=== PATIENT | female | born 1965 | race Caucasian/White ===

== ENCOUNTER → 2021-12-13 15:23 | Outpatient (CLI) | payer OTHER, SELFPAY ==
--- NOTE | ~2021-12-13 | US_ITS ---
EXAMINATION: US transvaginal DATE: 12/13/2021 15:41 INDICATION: Cervical firmness TECHNIQUE: Multiple endovaginal sonographic images of the pelvis were obtained. COMPARISON: None. FINDINGS: Uterus: 9.8 x 0.7 x 9.7 cm. Endometrial complex is poorly visualized. The external contours of the ut erus are poorly visualized. 7.9 cm x 6.7 x 7 cm spherical mass present, likely within the uterine emmy metrium, with heterogeneous echogenicity. Right Ovary: Not visualized. Left Ovary: Not visualized. There is no free fluid in the pelvis. IMPRESSION: 1. Possible 7.9 cm uterine fibroid. 2. Given limited sonographic visualization of the uterus and adnexa, consider pelvic MRI for more com plete evaluation and to confirm the location and character of the suspected fibroid. Reviewed, dictated and finalized at [facility]. IMPRESSION: 1. Possible 7.9 cm uterine fibroid. 2. Given limited sonographic visualization of the uterus and adnexa, consider p elvic MRI for more complete evaluation and to confirm the location and characte r of the suspected fibroid.
== END ==
PROVIDERS: PCP Internal Medicine; Visit Provider Nurse Practitioner
DX: D26.0 Other benign neoplasm of cervix uteri (principal)
CPT/HCPCS: 76830

== ENCOUNTER → 2022-02-15 12:43 | Outpatient (CLI) | payer OTHER, SELFPAY ==
--- NOTE | ~2022-02-15 | MR_ITS ---
EXAMINATION: MR pelvis wo/w con DATE: 02/15/2022 14:26 INDICATION: Uterine mass. TECHNIQUE: Magnetic resonance imaging (MRI) of the pelvis was performed without and with 18 mL MultiH ance intravenous contrast. COMPARISON: Ultrasound 12/13/2021 FINDINGS: There are no dilated loops of bowel. There is a 9.6 cm intramural fibroid in the uterus posteriorly. The endometrial complex is normal in thickness. There is physiologic fluid in the pelvis. There is a 1.6 cm dominant follicle in left ovary. Right ovary is normal. IMPRESSION: 1. 9.6 cm intramural uterine fibroid. Reviewed, dictated and finalized at location [facility].
[2022-02-15 13:40] LABS: Estimated Glomerular Filt Rate > 60
== END ==
PROVIDERS: PCP Internal Medicine; Visit Provider Obstetrics & Gynecology Gynecology
DX: N85.8 Other specified noninflammatory disorders of uterus (principal); D25.9 Leiomyoma of uterus, unspecified
CPT/HCPCS: 72197; A9577

== ENCOUNTER 2024-02-14 13:10 | Outpatient (CLI) | payer OTHER, SELFPAY ==
--- NOTE | ~2024-02-14 | US_ITS ---
EXAMINATION: US pelvic complete DATE: 02/14/2024 13:27 INDICATION: Pelvic pain Comparison:12/13/2021 TECHNIQUE: Multiple transabdominal and endovaginal sonographic images of the pelvis performed. FINDINGS: The uterus measures 13.9 x 11.5 x 2.9 cm. There are uterine fibroids, largest measuring 8.5 cm. The endometrial complex measures 1.3 cm. The right ovary measures 2.3 x 1.3 x 2.2 cm and the left ovary measures 2 x 1.2 x 1.8 cm. There are small follicles in each ovary. Normal doppler signal in both ovaries. There is no free fluid in the pelvis. There are no abnormal masses seen on either side. IMPRESSION: 1. Enlarged fibroid uterus. 2: Thickened endomtrial complex. The differential diagnosis includes endometrial hyperplasia, polyp a nd carcinoma. Biopsy is recommended. Reviewed, dictated and finalized at location [facility]. IMPRESSION: 1. Enlarged fibroid uterus. 2: Thickened endomtrial complex. The differential diagnosis includes endometria l hyperplasia, polyp and carcinoma. Biopsy is recommended.
== END 2024-02-14 13:11 ==
PROVIDERS: PCP Internal Medicine; Visit Provider Nurse Practitioner
DX: R10.2 Pelvic and perineal pain (principal); D25.9 Leiomyoma of uterus, unspecified; R93.89 Abnormal findings on diagnostic imaging of other specified body structures
CPT/HCPCS: 76856

== ENCOUNTER 2024-03-24 01:45 | Day surgery (SDC) | payer OTHER, SELFPAY ==
[2024-03-14 10:13] VITALS: BMI 32.3
--- NOTE | 2024-03-14 10:23 | PC.NURSE ---
Report to the Outpatient Waiting Room, entrance under the green pavilion located off [facility], at time 09:30am on date 03-24-24. Planned Procedure Time: 11:30am. Time changes happen often and if your time is changed the preop area will call you the afternoon before. - You and your visitor will be asked to self-screen and do not enter if you have any COVID symptoms. - A mask is optional within the hospital at this time. Patients may have clear liquids (water, carbonated beverages, clear teas, apple juice) until 3 hours prior to surgery (08:30am) with a maximum of 20 ounces. - No food from midnight until time of surgery Take the following medications with a SIP of water the morning of surgery: wellbutrin, lexapro DO NOT STOP ANY OF YOUR OTHER PRESCRIPTION MEDICATIONS PRIOR TO SURGERY ?EXCEPT THE FOLLOWING Medications to discontinue per physician n/a Please no make-up, nail irish, hairspray, perfume, deodorant, or body powder the day of surgery. No jewelry (including any body piercings) or valuables the day of surgery, leave them at home. Please take a shower or bath the night before, or the morning of, surgery with an antibacterial soap. Wear comfortable, loose fitting clothing. - Jewelry must be removed prior to entering the operating room. Rings and piercings that are not removed may be cut off. - The hospital will not accept responsibility for valuables. - Please leave all valuables, including medications, at home the day of surgery. If you are going home after surgery, a licensed motorcycle delivery driver must drive you home. - NO public transportation without another adult if you receive anesthesia. - We recommend that an adult stay with you for 24 hours following discharge. - We also recommend that you do not drive, make important decision, drink alcoholic beverages, or take any drugs that were not prescribed by your health care provider for at least 24 hours after your discharge time. Follow any additional instructions given to you from your surgeon. If you or anyone in your household have experienced Covid symptoms in the past week, please notify your surgeon or the nurse liaison at the phone number below for possible testing. Telephone instructions given to PATIENT and asked if any additional questions and then verbalized understanding. Patient advised to call surgeon office or pre surgery nurse liaison [phone] if any additional questions.
--- NOTE | 2024-03-24 07:55 | P.HP_ITS ---
History of Present Illness History of Present Illness Consent: Risks, benefits, and alternatives have been discussed and questions answered. Patient agrees to proceed with procedure. Chief complaint: Thickened Endometrial Lining Narrative: Tania Cordova is a 59 year old female with known fibroids. Patient had complaints of pain and a pelvic ultrasound was performed which redemonstrated fibroids. However, the endometrium measured 1.3cm. The patient denied vaginal bleeding. Due to the thickened endometrium was recommended to undergo hysteroscopy D&C for further evaluation. Risks of infection, bleeding, perforation, and possible pathology are reviewed. Patient voices understanding and agrees to proceed. Review of Systems Review of Systems: not repeated day of surgery; patient states no changes in status [facility] Past Medical History Medical History (Updated 03/24/24 @ 08:00 by Ada Narvaez MD) Depression Hymenal remnant history of surgical removal age 16 Surgical History Surgical History (Updated 03/24/24 @ 07:59 by Ada Narvaez MD) Status post gastric bypass for obesity lap band placed 2009 Status post laparoscopic cholecystectomy Status post left knee replacement Social History Social History Smoking status: Never smoker Alcohol intake: never Substance use: never Substance use type: does not use Living arrangements: with family Meds Home Medications and Allergies Home Medications Medication Instructions Recorded Confirmed Type bupropion HCl 150 mg 24 hr tablet, 150 mg PO DAILY 03/14/24 03/14/24 History extended release escitalopram oxalate 20 mg tablet 20 mg PO DAILY 03/14/24 03/14/24 History estradiol-norethindrone acet 0.5 1 tablet PO DAILY 03/14/24 03/14/24 History mg-0.1 mg tablet Allergies Allergy/AdvReac Type Severity Reaction Status Date / Time No Known Allergies Allergy Verified 03/14/24 10:16 Exam Const: General: healthy appearing and alert Orientation/consciousness: patient oriented x3 Resp: Effort & Inspection: normal respiratory effort : External Female Exam: normal external appearance Speculum Exam - Vagina: normal appearance of the vagina and normal vaginal discharge Speculum Exam - Cervix: normal appearance of the cervix Bimanual exam- vagina & uterus: consistency normal and enlarged ( approximately 16 week size) Bimanual Exam- Adnexa, other: normal adnexae and No adnexal tenderness Neuro: General: patient oriented x3 Assessment and Plan Assessment and plan (1) Thickened endometrium: Code(s): R93.89 - Abnormal findings on diagnostic imaging of other specified body structures Status: Acute Assessment and Plan: plan to proceed with hysteroscopy D&C
--- NOTE | 2024-03-24 07:55 | WPDHPUPDATE1 ---
History and Physical Update Update Date/Time: 03/24/24 07:55 History and Physical has been reviewed, including an updated exam of the patient. There are NO changes in the patient's condition. Risks, benefits, and alternatives have been discussed and questions answered. Patient agrees to proceed with procedure.
[2024-03-24 09:37] VITALS: BP 138/68; PULSE 62; RESP 16; TEMP 36.3; O2SAT 97
[2024-03-24] MEDS: ACETAMINOPHEN 500 MG TABLET 1000 MG PO (09:45)
[2024-03-24] MEDS: LACTATED RINGERS 1,000 ML 30 ML IV CONT (09:50)
--- NOTE | 2024-03-24 10:08 | P.PNAN_ITS ---
Anes - Initial Pre Proc Eval Procedure: Operation Date: 03/24/24 11:30 Proposed Procedures p Hysteroscopy Dilation and Curettage - Ada Narvaez MD Date/Time: 03/24/24 10:08 Surgeon: Ada Narvaez MD Pre Op Diagnosis: Thickened Endometrial Lining Patient Data Age: 59 Gender: F Height: 1.68 m Weight: 97.5 kg Last Vital Signs Temp 97.3 F L 03/24/24 09:37 Pulse 62 03/24/24 09:37 Resp 16 03/24/24 09:37 BP 138/68 03/24/24 09:37 Pulse Ox 97 03/24/24 09:37 O2 Del Method Room Air 03/24/24 09:37 Allergies Allergy/AdvReac Type Severity Reaction Status Date / Time No Known Allergies Allergy Verified 03/24/24 09:41 Home Medications Medication Instructions Recorded Confirmed Type bupropion HCl 150 mg 24 hr tablet, 150 mg PO DAILY 03/14/24 03/24/24 History extended release escitalopram oxalate 20 mg tablet 20 mg PO DAILY 03/14/24 03/24/24 History estradiol-norethindrone acet 0.5 1 tablet PO DAILY 03/14/24 03/24/24 History mg-0.1 mg tablet Patient hx anesthesia problems: none Family hx anesthesia problems: none Results Review: All pre-operative results and documents have been reviewed as part of the pre- operative evaluation. [facility] Past Medical History Medical History Depression Hymenal remnant history of surgical removal age 16 Surgical History Surgical History Status post gastric bypass for obesity lap band placed 2009 bypass 2014 Status post laparoscopic cholecystectomy Status post left knee replacement Social History Social History Smoking status: Never smoker Alcohol intake: never Substance use: never Substance use type: does not use Living arrangements: with family Anes - Eval Final PreProcedure Day of Procedure 03/24/24 10:08 Patient weight: obese Heart: regular rate and rhythm Lungs: clear to auscultation Airway: Mallampati scale Neurological: alert and oriented Last oral intake: >/= 8 hours ASA classification: II Emergent: no Anesthetic plan: proceed Anesthesia type and monitoring: general GIVS and standard monitoring Results Review: All pre-operative results and documents have been reviewed as part of the pre- operative evaluation. Hx of anxiety/depression, pt w BMI 34. Informed Consent: The patient's anesthetic plan and its attendant risks and benefits were discussed with the patient/family/POA. Questions were solicited and answers provided to the satisfaction of the patient/family/POA.
[2024-03-24] MEDS: KETOROLAC 15 MG/ML VIAL (*BKC) IV PUSH (10:50)
--- NOTE | 2024-03-24 11:15 | W.PM.PROC2 ---
Procedure Note - Detailed Date of Procedure 03/24/24 Pre-op Diagnosis Thickened Endometrial Lining Post-op Diagnosis Same Procedure Performed diagnostic hysteroscopy; excision endocervical polyp Surgeon Ada Narvaez MD Anesthesia MAC Findings 1cm endocervical polyp at the cervical os; uterus sounded to 15cm Description of Procedure The patient is taken to the operating room and placed under anesthesia in the dorsal lithotomy position. She was prepped and draped in usual sterile fashion. [place] speculum was placed in the vagina and the cervix is noted to have a 1cm polyp. The polyp was grasped with a ring forcep and excised. The uterus is then sounded without difficulty to 15cm. The hysteroscope was placed and there was a small perforation noted at the fundus. No obvious abnormalities are noted however there is not full expansion of the cavity. Due to the perforation no biopsies taken. The instruments are removed and the patient awakened from anesthesia and taken to recovery in stable condition. Sponge, needle, and instrument counts are correct per the OR staff. Estimated Blood Loss 5 Drains No Packing No Pathology Yes ( Endocervical polyp) Complications Other complications ( uterine perforation) Condition Stable Disposition PACU
[2024-03-24 11:19] VITALS: BP 133/66; PULSE 66; RESP 16; O2SAT 96
[2024-03-24 11:45] VITALS: BP 132/69; PULSE 59; RESP 16
[2024-03-24 12:05] VITALS: BP 138/66; PULSE 60; RESP 18
== END 2024-03-24 12:13 | disposition home or self-care (01) ==
PROVIDERS: PCP Internal Medicine; Visit Provider Obstetrics & Gynecology Gynecology
PROC: 0U5B8ZZ Destruction of Endometrium, Via Natural or Artificial Opening Endoscopic (ICD-10-PCS; CPT 58563; principal; 2024-03-24 11:30)
DX: N88.8 Other specified noninflammatory disorders of cervix uteri (principal); F32.A Depression, unspecified; E66.9 Obesity, unspecified; Z68.34 Body mass index [BMI] 34.0-34.9, adult; Z98.890 Other specified postprocedural states; Z98.84 Bariatric surgery status; Z90.49 Acquired absence of other specified parts of digestive tract
CPT/HCPCS: 58558; 88305; A9270; J1100; J1885; J2250; J2405; J2704; J3010; J7120